=== PATIENT | male | born 1970 | race Caucasian/White ===

== ENCOUNTER 2017-05-16 01:16 | Emergency (ER) | payer BC, MEDICAID ==
[~2017-05-16] VITALS: Ht 182.9 cm; Wt 116.0 kg
[~2017-05-16 01:16] MED LIST: CHLOR50 PO; LISI-363 PO; LISI40TA PO; PROT40TA PO
[2017-05-16 01:20] VITALS: BP 240/144; PULSE 81; RESP 18; TEMP 98.4; O2SAT 98
[2017-05-16] MEDS ORDERED: SODIUM CHLORIDE 0.9% FLUSH 10 ML FLUSH IVF PRN (01:30)
--- NOTE | 2017-05-16 01:30 | PD ---
HPI Chief Complaint: neuro symptoms Time Seen by Provider: 01:28 Travel History International Travel<30 days: No Contact w/Intl Traveler<30days: No Traveled to known affect area: No History of Present Illness HPI 47-year-old male presents to the emergency department by private transportation for evaluation of possible slurred speech. According to the patient he does not believe that he has slurred speech however he states between 11 and 12:30 tonight he was talking on the telephone with his and she told him that she thought his speech was slurred. Patient states that he did not fill his speech was slurred and because she insisted upon him coming he is now presenting for evaluation. Patient denies: any headache, confusion, visual disturbance, double vision, loss of vision, speech disturbance, difficulty swallowing, chest pain, palpitations, shortness of breath, nausea or vomiting, balance disturbance , dizziness, weakness on one side of the body or the other side of the body, and no numbness or tingling of the extremities. Patient denies taking any prescription medications. Patient reports that he has been diagnosed in the past with hypertension but takes no medications. Patient denies history of dyslipidemia tobacco use or diabetes. Patient okay she drinks alcohol but not tonight. Patient was able to drive himself to the emergency department. Patient is able to identify exacerbating or alleviating factors. The patient is not present to the emergency department with his however with his on his cell phone on speaker while speaking to the patient in the exam room with medical staff present the now reports that he does not have any slurring of speech and that the episode occurred around 12:30 and lasted for 5- 10 minutes. also by phone relays that approximately 2-3 months ago he had a similar episode again of 5-10 minutes that resolved spontaneously. Patient denies family history of CVA. Patient rates pain 0/10 intensity. PFSH Past Medical History Narrative Medical Hypertension, sleep apnea, psoriasis, gastric bypass, ventral herniorrhaphy, no tobacco use or alcohol use; nursing notes reviewed Cancer: No Cardiovascular Problems: Yes (HTN) Diabetes: No Endocrine: No Genitourinary: No Hepatitis: No Hiatal Hernia: No Hypertension: Yes Immune Disorder: No Musculoskeletal: No Neurologic: No Psychiatric: No Reproductive: No Respiratory: Yes (SLEEP APNEA C PAP) Immunizations Current: Yes Thyroid Disease: No Past Surgical History Abdominal Surgery: Yes (HERNIA REPAIR GASTRIC BYPASS) AICD: No Joint Replacement: No Pacemaker: No Other Surgery: Yes Social History Alcohol Use: No Tobacco Use: No Substance Use: No Allergies-Medications (Allergen,Severity, Reaction): Coded Allergies: No Known Allergies (Verified , 05/16/17) Reported Meds & Prescriptions Reported Meds & Active Scripts Active No Active Prescriptions or Reported Medications Narrative Medication Patient denies taking any prescription medications but has prescription for lisinopril. Review of Systems Except as stated in HPI: all other systems reviewed are Neg General / Constitutional: No: Fever, Chills Eyes: No: Diploplia, Blurred Vision, Photophobia, Visual changes HENT: No: Headaches, Vertigo, Lightheadedness Cardiovascular: No: Chest Pain or Discomfort, Palpitations Respiratory: No: Shortness of Breath Gastrointestinal: No: Nausea, Vomiting, Abdominal Pain Genitourinary: No: Flank Pain Musculoskeletal: No: Myalgias, Arthralgias, Weakness Skin: No Rash Neurologic: No: Weakness, Dizziness, Syncope, Focal Abnormalities, Ataxia, Headache, Change in Mentation, Slurred Speech ((reportedly noted by ; confirmed by on cell phone --duration 5-10 minutes around 12:30 AM)), Paresthesia Psychiatric: No: Anxiety Endocrine: No: Heat Intolerance Hematologic/Lymphatic: No: Easy Bruising Physical Exam Narrative GENERAL: Well-developed well-nourished male in no acute distress no respiratory distress; GCS 15 SKIN: Warm and dry. HEAD: Atraumatic. Normocephalic. EYES: Pupils equal and round. No scleral icterus. No injection or drainage. ENT: No nasal bleeding or discharge. Mucous membranes pink and moist. NECK: Trachea midline. No JVD. CARDIOVASCULAR: Regular rate and rhythm. RESPIRATORY: No accessory muscle use. Clear to auscultation. Breath sounds equal bilaterally. GASTROINTESTINAL: Abdomen soft, non-tender, nondistended. Hepatic and splenic margins not palpable. MUSCULOSKELETAL: Extremities without clubbing, cyanosis, or edema. No obvious deformities. NEUROLOGICAL: Awake and alert. No obvious cranial nerve deficits. Motor grossly within normal limits. Five out of 5 muscle strength in the arms and legs. No pronator drift. No limb ataxia. Sensory exam grossly intact. Normal speech, no slurring of speech. PSYCHIATRIC: Appropriate mood and affect; insight and judgment normal. Data Data Last Documented VS Vital Signs Date Time Temp Pulse Resp B/P (MAP) Pulse Ox O2 Delivery O2 Flow Rate FiO2 05/16/17 03:39 77 18 98 05/16/17 02:59 Room Air 05/16/17 01:20 98.4 Orders Orders Electrocardiogram (05/16/17:28) Prothrombin Time / Inr (Pt) (05/16/17:28) Act Partial Throm Time (Ptt) (05/16/17:28) Complete Blood Count With Diff (05/16/17:28) Comprehensive Metabolic Panel (05/16/17:28) Troponin I (05/16/17:28) Ct Brain W/O Iv Contrast(Rout) (05/16/17:28) Chest, Single Ap (05/16/17:28) Ecg Monitoring (05/16/17:28) Iv Access Insert/Monitor (05/16/17:28) Oximetry (05/16/17:28) Blood Glucose (05/16/17:28) Sodium Chloride 0.9% Flush (Ns Flush) (05/16/17 01:30) Labetalol Inj (Trandate Inj) (05/16/17 01:45) Enalaprilat Inj (Vasotec Inj) (05/16/17 02:45) Nitroglycerin 2% Oint (Nitroglycerin 2% (05/16/17 03:00) Labs Laboratory Tests Test 05/16/17 01:45 White Blood Count 6.9 TH/MM3 Red Blood Count 5.21 MIL/MM3 Hemoglobin 14.8 GM/DL Hematocrit 45.0 % Mean Corpuscular Volume 86.3 FL Mean Corpuscular Hemoglobin 28.4 PG Mean Corpuscular Hemoglobin Concent 33.0 % Red Cell Distribution Width 12.2 % Platelet Count 232 TH/MM3 Mean Platelet Volume 8.0 FL Neutrophils (%) (Auto) 51.9 % Lymphocytes (%) (Auto) 37.4 % Monocytes (%) (Auto) 5.4 % Eosinophils (%) (Auto) 4.3 % Basophils (%) (Auto) 1.0 % Neutrophils # (Auto) 3.5 TH/MM3 Lymphocytes # (Auto) 2.6 TH/MM3 Monocytes # (Auto) 0.4 TH/MM3 Eosinophils # (Auto) 0.3 TH/MM3 Basophils # (Auto) 0.1 TH/MM3 CBC Comment DIFF FINAL Differential Comment Prothrombin Time 11.0 SEC Prothromb Time International Ratio 1.0 RATIO Activated Partial Thromboplast Time 27.5 SEC Blood Urea Nitrogen 16 MG/DL Creatinine 0.99 MG/DL Random Glucose 92 MG/DL Total Protein 7.2 GM/DL Albumin 4.0 GM/DL Calcium Level 8.3 MG/DL Alkaline Phosphatase 112 U/L Aspartate Amino Transf (AST/SGOT) 24 U/L Alanine Aminotransferase (ALT/SGPT) 26 U/L Total Bilirubin 0.6 MG/DL Sodium Level 140 MEQ/L Potassium Level 3.3 MEQ/L Chloride Level 106 MEQ/L Carbon Dioxide Level 24.0 MEQ/L Anion Gap 10 MEQ/L Estimat Glomerular Filtration Rate 82 ML/MIN Troponin I 0.08 NG/ML MDM Medical Decision Making Medical Screen Exam Complete: Yes Emergency Medical Condition: Yes Medical Record Reviewed: Yes Interpretation(s) EKG: Normal sinus rhythm rate 73 normal axis and intervals no acute ST elevation or injury pattern or ectopy Last Impressions Head CT 05/16/17 0128 Signed Impressions: Service Date/Time: Thursday, May 16, 2017 01:32 - CONCLUSION: 1. No acute hemorrhage or mass effect. 2. Calcified meningioma along the right frontal lobe with no edema. 3. Mucosal thickening in the ethmoidal air cells and visualized portions of the maxillary sinuses. Macho Dean MD CBC & BMP Diagram 05/16/17 01:45 Total Protein 7.2, Albumin 4.0, Calcium Level 8.3 L, Alkaline Phosphatase 112, Aspartate Amino Transf (AST/SGOT) 24, Alanine Aminotransferase (ALT/SGPT) 26, Total Bilirubin 0.6 Vital Signs Date Time Temp Pulse Resp B/P (MAP) Pulse Ox O2 Delivery O2 Flow Rate FiO2 05/16/17 03:39 77 18 98 05/16/17 02:59 74 16 185/103 (130) 96 Room Air 05/16/17 02:48 78 16 207/118 (147) 96 Room Air 05/16/17 02:06 74 18 213/130 (157) 100 Room Air 05/16/17 01:20 18 98 Room Air 05/16/17 01:20 82 18 98 Room Air 05/16/17 01:20 98.4 81 18 240/144 (608) 98 troponin I: 0.08, elevated Differential Diagnosis TIA, CVA, ICH, hypertensive urgency, hypertensive crisis Narrative Course NIHSS: 0; sent for CT brain Patient placed on monitor IV access obtained specimens collected and sent for resulting patient noted to be markedly hypertensive; patient administered Labetalol [address] brain resulted no acute bleed or mass effect -- R frontal calcified meningioma w/o edema, mass effect, or bleed per reading radiologist @ 2:58 AM GCS 15; NIHSS 0; UOOB to BR; after labetalol 20 mg iv and vasotec 1.25 mg IV BP: 180/103 troponin I: 0.08, elevated -- most likely due to HTN, however as BP remains elevated and troponin I is elevated will add nitropaste 1" to CW for BP management and possible CAD; discussed with patient plan for admission and patient refuses admission; discussed in detail risks (such as: stroke, brain bleed, seizure, myocardial infarction, arrhythmia, ) of leaving and benefit (such as: cardiac monitoring, blood pressure management, additional imaging studies, repeat heart enzymes, neurology, neurosurgery, and cardiology consultation) of staying for admission and patient refuses admission even knowing risk of . GCS 15, the patient is alert, oriented to person, place , time and events; does not appear anxious/confused/stressed; and acknowledges understanding of diagnosis of uncontrolled hypertension/hypertensive emergency/ crisis, elevated troponin I, cerebral meningioma, and TIA. AMA: The risks of leaving against medical advice without further evaluation treatment were discussed with the patient. These risks include cardiac dysfunction, cardiac dysrhythmia, possible heart attack, possible seizure, ICH, stroke or . The patient indicated understanding of these risks and appeared to have the capacity to make this decision. Critical Care Narrative Aggregate critical care time was 35 minutes. Time to perform other separately billable procedures was not included in the critical care time. My time did not include minutes spent treating any other patients simultaneously or on activities that did not directly contribute to the patient's treatment. The services I provided to this patient were to treat and/or prevent clinically significant deterioration that could result in: Arrhythmia, myocardial infarction, seizure, CVA, I provided critical care services requiring my management, as noted below: Chart data review, documentation time, medication orders and management, vital sign assessments/reviewing monitor data, ordering and reviewing lab tests, ordering and interpreting/reviewing x-rays and diagnostic studies, care of the patient and discussion of the patient with the admitting physicians. Diagnosis Primary Impression: Hypertension, uncontrolled Additional Impressions: TIA (transient ischemic attack) Qualified Codes: G45.9 - Transient cerebral ischemic attack, unspecified Calcified cerebral meningioma Elevated troponin I level Admitting Information Admitting Physician Requests: Admit Scripts No Active Prescriptions or Reported Meds Belén Nance MD May 16, 2017 01:30
[2017-05-16] MEDS ORDERED: LABETALOL HCL 100 MG/20 ML VIAL IV PUSH ONE (01:45)
--- NOTE | 2017-05-16 01:52 | RADRPT ---
EXAM DATE/TIME: 05/16/2017 01:32 [facility] COMPARISON: No previous studies available for comparison. INDICATIONS : Slurred speech tonight around 11:00 p.m. RADIATION DOSE: 60.79 CTDIvol (mGy) MEDICAL HISTORY : Hypertension. SURGICAL HISTORY : None. ENCOUNTER: Initial ACUITY: 1 day PAIN SCALE: 0/10 LOCATION: cranial TECHNIQUE: Multiple contiguous axial images were obtained of the head. Using automated exposure control and adj ustment of the mA and/or kV according to patient size, radiation dose was kept as low as reasonably a chievable to obtain optimal diagnostic quality images. DICOM format image data is available electro nically for review and comparison. FINDINGS: CEREBRUM: The ventricles are normal for age. There is a densely calcified meningioma along the right frontal l obe with no edema. No evidence of midline shift, mass lesion, hemorrhage or acute infarction. No ext ra-axial fluid collections are seen. POSTERIOR FOSSA: The cerebellum and brainstem are intact. The 4th ventricle is midline. The cerebellopontine angle i s unremarkable. EXTRACRANIAL: The visualized portion of the orbits is intact. There is mucosal thickening in the ethmoidal air cell s and maxillary sinuses. SKULL: The calvaria is intact. No evidence of skull fracture. CONCLUSION: 1. No acute hemorrhage or mass effect. 2. Calcified meningioma along the right frontal lobe with no edema. 3. Mucosal thickening in the ethmoidal air cells and visualized portions of the maxillary sinuses. Macho Dean MD on May 16, 2017 at 1:48 Board Certified Radiologist. This report was verified electronically.
--- NOTE | 2017-05-16 02:00 | RADRPT ---
EXAM DATE/TIME: 05/16/2017 01:43 [facility] COMPARISON: No previous studies available for comparison. INDICATIONS : Slurred speech and high blood pressure. MEDICAL HISTORY : Hypertension. SURGICAL HISTORY : None. ENCOUNTER: Initial ACUITY: 1 day PAIN SCORE: 0/10 LOCATION: Bilateral chest FINDINGS: A single view of the chest demonstrates the lungs to be symmetrically aerated without evidence of mas s, infiltrate or effusion. The cardiomediastinal contours are unremarkable. Osseous structures are intact. CONCLUSION: No acute disease. Macho Dean MD on May 16, 2017 at 1:58 Board Certified Radiologist. This report was verified electronically.
[2017-05-16 02:06] VITALS: BP 213/130; PULSE 74; RESP 18; O2SAT 100
[2017-05-16 02:07] LABS: AUTOMATED NEUTROPHIL # 3.5 TH/MM3 (1.8-7.7); BASOPHIL # 0.1 TH/MM3 (0-0.2); EOSINOPHIL # 0.3 TH/MM3 (0-0.4); EOSINOPHIL % 4.3 % (0.0-4.0); HEMO FLAGS DIFF FINAL; LYMPH % 37.4 % (9.0-44.0); LYMPHOCYTE # 2.6 TH/MM3 (1.0-4.8); MEAN CELL VOLUME 86.3 FL (80.0-100.0); MEAN CORPUSCULAR HEMOGLOBIN 28.4 PG (27.0-34.0); MONO % 5.4 % (0.0-8.0); NEUT % 51.9 % (16.0-70.0); PLATELET COUNT 232 TH/MM3 (150-450); RED BLOOD COUNT 5.21 MIL/MM3 (4.50-5.90); RED CELL DISTRIBUTION WIDTH 12.2 % (11.6-17.2); WHITE BLOOD COUNT 6.9 TH/MM3 (4.0-11.0)
[2017-05-16 02:19] LABS: APTT (PATIENT) 27.5 SEC (24.3-30.1)
[2017-05-16 02:24] LABS: CHLORIDE 106 MEQ/L (98-107); POTASSIUM 3.3 MEQ/L (3.5-5.1); SODIUM (NA) 140 MEQ/L (136-145)
[2017-05-16 02:27] LABS: ANION GAP 10 MEQ/L (5-15); BLOOD UREA NITROGEN 16 MG/DL (7-18)
[2017-05-16 02:30] LABS: ALT (GPT) 26 U/L (12-78); AST (GOT) 24 U/L (15-37)
[2017-05-16 02:31] LABS: GLOMERULAR FILTRATION RATE 82 ML/MIN (>89)
[2017-05-16 02:32] LABS: TOTAL BILIRUBIN ADULT 0.6 MG/DL (0.2-1.0)
[2017-05-16 02:33] LABS: ALKALINE PHOSPHATASE 112 U/L (45-117)
[2017-05-16] MEDS ORDERED: ENALAPRILAT 1.25 MG/ML VIAL IV PUSH ONE (02:45)
[2017-05-16 02:48] VITALS: BP 207/118; PULSE 78; RESP 16; O2SAT 96
[2017-05-16 02:59] VITALS: BP 185/103; PULSE 74; RESP 16; O2SAT 96
[2017-05-16] MEDS ORDERED: NITROGLYCERIN 2% OINT 1 GM PACKET TOPICAL ONE (03:00)
--- NOTE | 2017-05-16 17:13 | EKG ---
Date Performed: 05/16/2017 Time Performed: 01:49:39 PTAGE: 47 years EKG: Sinus rhythm NORMAL ECG PREVIOUS TRACING : 08/22/2015 07.58 v DOCTOR: Nimo Hartley Interpretating Date/Time 05/16/2017 17:12:01
[2017-05-20] MEDS ORDERED: CYAN1TAB24 (09:18)
[2017-05-20] MEDS ORDERED: MULTTAB67 PO (09:18)
[2017-05-20] MEDS ORDERED: AMLO10TA2 PO (09:28)
[2017-05-20] MEDS ORDERED: CHLOR50 PO (09:57)
[2017-05-20] MEDS ORDERED: LISI40TA PO (09:57)
== END 2017-05-16 03:42 | disposition left against medical advice (07) ==
LOC: PHED 01:16
DX: I10 Essential (primary) hypertension (principal); G45.9 Transient cerebral ischemic attack, unspecified; D32.0 Benign neoplasm of cerebral meninges; R79.89 Other specified abnormal findings of blood chemistry; G47.30 Sleep apnea, unspecified; Z87.2 Personal history of diseases of the skin and subcutaneous tissue; Z87.19 Personal history of other diseases of the digestive system; Z53.29 Procedure and treatment not carried out because of patient's decision for other reasons
CPT/HCPCS: 70450; 71010; 80053; 84484; 85025; 85610; 85730; 93005; 96374; 96375

== ENCOUNTER 2017-07-21 20:18 | Emergency (ER) | payer BC, MEDICAID ==
[~2017-07-21 20:18] MED LIST changes: +AMLO10TA2 PO; +CYAN1TAB24; -LISI-363 PO; +MULTTAB67 PO; +PERC5TAB12 PO; -PROT40TA PO
[2017-07-21 20:20] VITALS: BP 162/92; PULSE 119; RESP 18; TEMP 99.9; O2SAT 98
[2017-07-21 20:29] VITALS: BP 140/91; PULSE 119; RESP 21; TEMP 99.5; O2SAT 95
[2017-07-21 21:14] LABS: AUTOMATED NEUTROPHIL # 5.5 TH/MM3 (1.8-7.7); BASOPHIL % 0.4 % (0.0-2.0); EOSINOPHIL # 0.1 TH/MM3 (0-0.4); EOSINOPHIL % 1.7 % (0.0-4.0); HEMATOCRIT 41.1 % (39.0-51.0); HEMOGLOBIN 13.9 GM/DL (13.0-17.0); LYMPHOCYTE # 0.5 TH/MM3 (1.0-4.8); MEAN CELL VOLUME 87.1 FL (80.0-100.0); MEAN CORPUSCULAR HEMOGLOBIN 29.5 PG (27.0-34.0); MEAN CORPUSCULAR HGB CONC 33.9 % (32.0-36.0); MEAN PLATELET VOLUME 8.1 FL (7.0-11.0); MONO % 2.8 % (0.0-8.0); MONOCYTE # 0.2 TH/MM3 (0-0.9); NEUT % 87.1 % (16.0-70.0); PLATELET COUNT 144 TH/MM3 (150-450); RED BLOOD COUNT 4.72 MIL/MM3 (4.50-5.90); RED CELL DISTRIBUTION WIDTH 15.6 % (11.6-17.2); WHITE BLOOD COUNT 6.3 TH/MM3 (4.0-11.0)
[2017-07-21] MEDS ORDERED: IBUPROFEN 600 MG TAB PO ONE (21:30)
[2017-07-21 21:32] LABS: ALBUMIN 3.6 GM/DL (3.4-5.0); AST (GOT) 24 U/L (15-37); BICARBONATE 26.5 MEQ/L (21.0-32.0); BLOOD UREA NITROGEN 32 MG/DL (7-18); CHLORIDE 102 MEQ/L (98-107); CREATININE 1.03 MG/DL (0.60-1.30); GLOMERULAR FILTRATION RATE 78 ML/MIN (>89); GLUCOSE,RANDOM 104 MG/DL (74-106); SODIUM (NA) 136 MEQ/L (136-145)
[2017-07-21 21:33] LABS: ALT (GPT) 24 U/L (12-78)
[2017-07-21 21:35] LABS: ALKALINE PHOSPHATASE 84 U/L (45-117); TOTAL BILIRUBIN ADULT 0.7 MG/DL (0.2-1.0); TOTAL PROTEIN 6.8 GM/DL (6.4-8.2)
[2017-07-21 21:48] LABS: BILIRUBIN, URINE NEG (NEG); BLOOD, URINE SMALL (NEG); GLUCOSE,URINE NEG (NEG); KETONE, URINE NEG (NEG); MUCUS URINE FEW /lpf (OCC); NITRITE,URINE NEG (NEG); SQUAMOUS EPITHELIAL CELL URINE <1 /hpf (0-5); URINE COLOR YELLOW (YELLW/STRAW); URINE LEUKOCYTE ESTERASE NEG (NEG)
[2017-07-21] MEDS ORDERED: MAPA500T13 PO (22:12)
[2017-07-21] MEDS ORDERED: GUAISYP4 PO (22:12)
--- NOTE | 2017-07-21 22:15 | PD ---
HPI Chief Complaint: Fever Time Seen by Provider: 20:23 Travel History International Travel<30 days: No Contact w/Intl Traveler<30days: No Traveled to known affect area: No History of Present Illness HPI Patient is a 47-year-old male who 4 days ago had a mastectomy done. He was told that if he gets a fever over 100 to come to the ER. Patient has a shaking chills and had a fever at home, 101. And denies any other source for fever. Pt has body aches is his only complaint .. Pt has no sore throat however he does have sick contact --> his was had similar chills shaking chills fever body aches. Patient comes mainly because of the fever and recent surgery. He denies cough he denies sore throat denies short of breath he denies wheeze, He took no medication to alleviate symptoms because he was told no to take motrin for 1 week post vesectomy . He has not seen his Urologist . PFSH Past Medical History Cancer: No Cardiovascular Problems: Yes (HTN) Diabetes: No Diminished Hearing: No Endocrine: No Gastrointestinal Disorders: No Genitourinary: No Hepatitis: No Hiatal Hernia: No Hypertension: Yes Immune Disorder: No Musculoskeletal: No Neurologic: No Psychiatric: No Reproductive: No Respiratory: Yes (SLEEP APNEA C PAP) Immunizations Current: Yes Thyroid Disease: No Tetanus Vaccination: > 5 Years Past Surgical History Abdominal Surgery: Yes (HERNIA REPAIR GASTRIC BYPASS) AICD: No Joint Replacement: No Pacemaker: No Other Surgery: Yes (vasectomy) Social History Alcohol Use: No Tobacco Use: No Substance Use: No Allergies-Medications (Allergen,Severity, Reaction): Coded Allergies: No Known Allergies (Verified Adverse Reaction, Unknown, 07/17/17) Reported Meds & Prescriptions Reported Meds & Active Scripts Active Guaifenesin AC Liq (Guaifenesin-Codeine Liq) 100-10 Mg/5 Ml Syrp 10 Ml PO Q6H PRN Mapap Extra Strength (Acetaminophen) 500 Mg Tab 1,000 Mg PO Q6HR PRN Amlodipine (Amlodipine Besylate) 10 Mg Tab 10 Mg PO DAILY Percocet (Oxycodone-Acetaminophen) 5-325 mg Tab 1-2 Tab PO Q6H PRN Lisinopril 40 Mg Tab 40 Mg PO DAILY Chlorthalidone 50 Mg Tab 50 Mg PO DAILY Reported Multiple Vitamin 1 Tab 1 Tab PO DAILY B12 (Cyanocobalamin) 1,000 Mcg Tab Review of Systems Except as stated in HPI: all other systems reviewed are Neg General / Constitutional: Positive: Fever, Chills Respiratory: No: Cough, Shortness of Breath, Wheezing Gastrointestinal: No: Nausea, Vomiting Musculoskeletal: Positive: Myalgias Physical Exam Narrative GENERAL: Nontoxic-appearing does not appear septic is awake alert oriented 3 SKIN: Warm and dry. HEAD: Atraumatic. Normocephalic. EYES: Pupils equal and round. No scleral icterus. No injection or drainage. ENT: No nasal bleeding or discharge. Mucous membranes pink and moist. NECK: Trachea midline. No JVD. CARDIOVASCULAR: Regular rate and rhythm. RESPIRATORY: No accessory muscle use. Clear to auscultation. Breath sounds equal bilaterally. GASTROINTESTINAL: Abdomen soft, non-tender, nondistended. Hepatic and splenic margins not palpable. patient's scrotum has bilateral incision areas right above the scrotum near the epididymis there is mild bleeding but there is no sign of MUSCULOSKELETAL: Extremities without clubbing, cyanosis, or edema. No obvious deformities. NEUROLOGICAL: Awake and alert. No obvious cranial nerve deficits. Motor grossly within normal limits. Five out of 5 muscle strength in the arms and legs. Normal speech. PSYCHIATRIC: Appropriate mood and affect; insight and judgment normal. Data Data Last Documented VS Vital Signs Date Time Temp Pulse Resp B/P (MAP) Pulse Ox O2 Delivery O2 Flow Rate FiO2 07/21/17 22:18 07/21/17 20:29 99.5 119 21 95 Room Air Orders Orders Complete Blood Count With Diff (07/21/17 20:40) Comprehensive Metabolic Panel (07/21/17 20:40) Influenzae A/B Antigen (07/21/17 20:45) Group A Rapid Strep Screen (07/21/17 20:45) Urinalysis - C+S If Indicated (07/21/17 21:25) Ibuprofen (Motrin) (07/21/17 21:30) Strep Culture (Group A) (07/21/17 20:47) Ed Discharge Order (07/21/17 22:17) Labs Laboratory Tests Test 07/21/17 20:47 07/21/17 21:35 White Blood Count 6.3 TH/MM3 Red Blood Count 4.72 MIL/MM3 Hemoglobin 13.9 GM/DL Hematocrit 41.1 % Mean Corpuscular Volume 87.1 FL Mean Corpuscular Hemoglobin 29.5 PG Mean Corpuscular Hemoglobin Concent 33.9 % Red Cell Distribution Width 15.6 % Platelet Count 144 TH/MM3 Mean Platelet Volume 8.1 FL Neutrophils (%) (Auto) 87.1 % Lymphocytes (%) (Auto) 8.0 % Monocytes (%) (Auto) 2.8 % Eosinophils (%) (Auto) 1.7 % Basophils (%) (Auto) 0.4 % Neutrophils # (Auto) 5.5 TH/MM3 Lymphocytes # (Auto) 0.5 TH/MM3 Monocytes # (Auto) 0.2 TH/MM3 Eosinophils # (Auto) 0.1 TH/MM3 Basophils # (Auto) 0.0 TH/MM3 CBC Comment DIFF FINAL Differential Comment Blood Urea Nitrogen 32 MG/DL Creatinine 1.03 MG/DL Random Glucose 104 MG/DL Total Protein 6.8 GM/DL Albumin 3.6 GM/DL Calcium Level 8.0 MG/DL Alkaline Phosphatase 84 U/L Aspartate Amino Transf (AST/SGOT) 24 U/L Alanine Aminotransferase (ALT/SGPT) 24 U/L Total Bilirubin 0.7 MG/DL Sodium Level 136 MEQ/L Potassium Level 3.9 MEQ/L Chloride Level 102 MEQ/L Carbon Dioxide Level 26.5 MEQ/L Anion Gap 8 MEQ/L Estimat Glomerular Filtration Rate 78 ML/MIN Urine Color YELLOW Urine Turbidity CLEAR Urine pH 5.0 Urine Specific [place] 1.018 Urine Protein NEG mg/dL Urine Glucose (UA) NEG mg/dL Urine Ketones NEG mg/dL Urine Occult Blood SMALL Urine Nitrite NEG Urine Bilirubin NEG Urine Urobilinogen LESS THAN 2.0 MG/DL Urine Leukocyte Esterase NEG Urine RBC LESS THAN 1 /hpf Urine WBC 1 /hpf Urine Squamous Epithelial Cells <1 /hpf Urine Mucus FEW /lpf Microscopic Urinalysis Comment CULT NOT INDICATED MDM Medical Decision Making Medical Screen Exam Complete: Yes Emergency Medical Condition: Yes Differential Diagnosis Post operative sepsis versus viral infection with fever versus influenza versus strep throat pharyngitis Narrative Course pt has negative flu swab , neg strep , pt has 6 wbc on serum and slight Neutrophilic shift, UA negative exam no signs of localized infection .. pt safe for disharge with tylenol abd cough syrup , indicates her cough came on later and she has heard him, cough at times in this day Diagnosis Primary Impression: Fever Qualified Codes: R50.9 - Fever, unspecified Additional Impression: Viral syndrome Scripts Guaifenesin-Codeine Liq (Guaifenesin AC Liq) 100-10 Mg/5 Ml Syrp 10 ML PO Q6H Y for COUGH, #1 BOTTLE 0 Refills Prov: Wesley Mcneal MD 07/21/17 Acetaminophen (Mapap Extra Strength) 500 Mg Tab 1000 MG PO Q6HR Y for PAIN, #20 TAB 0 Refills Prov: Wesley Mcneal MD 07/21/17 Disposition: 01 DISCHARGE HOME Condition: Good Wesley Mcneal MD Jul 21, 2017 22:15
== END 2017-07-21 22:37 | disposition home or self-care (01) ==
LOC: NEPC 20:18
DX: B34.9 Viral infection, unspecified (principal); I10 Essential (primary) hypertension
CPT/HCPCS: 80053; 81001; 85025; 87081; 87804; 87880; 99283